=== PATIENT | female | born 1970 | race Two or more races ===

== ENCOUNTER 2023-01-25 09:47 | Outpatient (CLI) | payer OTHER | END 2023-01-25 09:50 | disposition home or self-care (01) | LOC: LAB 09:47 | PROVIDERS: ATTEND Specialist | DX: E78.5 Hyperlipidemia, unspecified (principal); I10 Essential (primary) hypertension; E03.9 Hypothyroidism, unspecified; E55.9 Vitamin D deficiency, unspecified; Z12.11 Encounter for screening for malignant neoplasm of colon; D64.9 Anemia, unspecified ==

== ENCOUNTER 2023-04-07 19:54 | Emergency (ER) | payer OTHER ==
[~2023-04-07] VITALS: Ht 152.4 cm; Wt 79.8 kg
[2023-04-07] MEDS ORDERED: LOSARTAN-HCTZ1 EAC1 PO (20:08)
[2023-04-07] MEDS ORDERED: SYNTHROID88 MCG PO (20:08)
[2023-04-07] MEDS ORDERED: MONTELUKAST SOD10 MG PO (20:08)
== END 2023-04-08 02:33 | disposition home or self-care (01) ==
LOC: ER 19:54
DX: S00.03XA Contusion of scalp, initial encounter (principal); S60.221A Contusion of right hand, initial encounter; M54.59 Other low back pain; M43.6 Torticollis; W18.39XA Other fall on same level, initial encounter; Y93.89 Activity, other specified; Y92.511 Restaurant or cafe as the place of occurrence of the external cause; Y99.8 Other external cause status

== ENCOUNTER → 2023-06-28 | Outpatient (CLI) | payer OTHER ==
[~2023-06-28] MED LIST: LOSARTAN-HCTZ1 EAC1 PO; MONTELUKAST SOD10 MG PO; SYNTHROID88 MCG PO
== END | disposition home or self-care (01) ==
LOC: LAB 10:04
PROVIDERS: ATTEND Internal Medicine Cardiovascular Disease
DX: I10 Essential (primary) hypertension (principal); E11.65 Type 2 diabetes mellitus with hyperglycemia; E78.2 Mixed hyperlipidemia; E55.9 Vitamin D deficiency, unspecified

== ENCOUNTER 2023-10-25 09:15 | Outpatient (CLI) | payer OTHER ==
[2023-10-25 10:47] LABS: HEMATOCRIT 38.5 % (36.0-45.00); HEMOGLOBIN 13.2 g/dL (12.0-15.00); MEAN CORPUSCULAR HEMOGLOBIN 31.8 pg (27.00-32.0); MEAN CORPUSCULAR HGB CONC 34.2 g/dl (32.0-36.0); PLATELET COUNT 276 K/uL (150-450); RED BLOOD COUNT 4.14 M/uL (4.00-6.00); RED CELL DISTRIBUTION WIDTH 12.6 % (11.5-14.5)
[2023-10-25 10:51] LABS: PH,URINE 7.5 (5.0-8.0); URINE APPEARANCE Clear; URINE BILIRRUBIN Negative (NEGATIVE); URINE BLOOD Negative; URINE COLOR Yellow; URINE GLUCOSE Negative (NEGATIVE); URINE LEUKOCYTE Trace; URINE NITRATE Negative; URINE PROTEIN Negative (NEGATIVE); URINE UROBILINOGEN 0.2 E.U./dl
[2023-10-25 10:54] LABS: URINE BACTERIA 62.9 uL (0.0-1933); URINE EPITHELIAL CELLS 7.4 uL (0.0-38.8); URINE RBC 3.5 uL (0.0-20.8)
[2023-10-25 11:02] LABS: MYCOPLASMA PNEUMONIAE IGM REACTIVE (NO REACTIVE)
[2023-10-25 11:08] LABS: ALBUMIN 4.1 gm/dL (3.4-5.0); BILIRUBIN TOTAL 0.47 mg/dL (0.3-1.2); CALCIUM 9.4 mg/dL (8.5-10.1); CHOL HDL RATIO 2.7 (0-5.0); CREATININE SERUM 0.72 mg/dL (0.55-1.02); FREE TRIODOTIRONINE 2.66 pg/ml (2.18-3.98); GFR 85.06; GLOBULINA 3.5 G/DL (2.4-3.5); POTASSIUM 3.8 mEq/L (3.5-5.1); T4 FREE 1.38 NG/ML (0.76-1.46); T4 TOTAL 10.85 UG/DL (4.8-13.9); TOTAL PROTEIN 7.6 gm/dL (6.4-8.2); TSH 1.76 uIU/mL (0.358-3.74)
[2023-10-27 15:22] LABS: RAPID PLASMA REAGIN NONREACTIVE BY RPR (NONREACTIVE)
== END 2023-10-25 09:17 | disposition home or self-care (01) ==
LOC: LAB 09:15
DX: B34.9 Viral infection, unspecified (principal); E11.69 Type 2 diabetes mellitus with other specified complication; N39.0 Urinary tract infection, site not specified; E55.9 Vitamin D deficiency, unspecified; I11.9 Hypertensive heart disease without heart failure

== ENCOUNTER → 2023-10-27 | Outpatient (CLI) | payer OTHER | END | disposition home or self-care (01) | LOC: MAMO-SONO 11:23 | DX: N95.1 Menopausal and female climacteric states (principal) ==

== ENCOUNTER 2023-12-01 07:53 | Outpatient (CLI) | payer OTHER | END 2023-12-01 08:01 | disposition home or self-care (01) | LOC: SONOGRAMA 07:53 | PROVIDERS: ATTEND General Practice | DX: E03.9 Hypothyroidism, unspecified (principal); E04.2 Nontoxic multinodular goiter ==

== ENCOUNTER 2023-12-26 10:50 | Outpatient (CLI) | payer OTHER ==
[2023-12-26 11:31] LABS: PH,URINE 7.5 (5.0-8.0); URINE APPEARANCE Clear; URINE BILIRRUBIN Negative (NEGATIVE); URINE BLOOD Negative; URINE COLOR Yellow; URINE GLUCOSE Negative (NEGATIVE); URINE LEUKOCYTE Moderate; URINE NITRATE Negative; URINE PROTEIN Negative (NEGATIVE); URINE UROBILINOGEN 0.2 E.U./dl
[2023-12-26 11:34] LABS: HEMATOCRIT 39.3 % (36.0-45.00); HEMOGLOBIN 13.6 g/dL (12.0-15.00); MEAN CELL VOLUME 94.3 fL (80.00-100.00); MEAN CORPUSCULAR HEMOGLOBIN 32.6 pg (27.00-32.0); MEAN CORPUSCULAR HGB CONC 34.5 g/dl (32.0-36.0); PLATELET COUNT 244 K/uL (150-450); RED BLOOD COUNT 4.17 M/uL (4.00-6.00); RED CELL DISTRIBUTION WIDTH 12.3 % (11.5-14.5)
[2023-12-26 11:35] LABS: URINE BACTERIA 977.6 uL (0.0-1933); URINE EPITHELIAL CELLS 15.1 uL (0.0-38.8); URINE RBC 45.2 uL (0.0-20.8); URINE WBC 10.5 uL (0.0-23.2)
[2023-12-26 12:32] LABS: ALBUMIN 4.2 gm/dL (3.4-5.0); BILIRUBIN TOTAL 0.59 mg/dL (0.3-1.2); CALCIUM 9.7 mg/dL (8.5-10.1); CREATININE SERUM 0.68 mg/dL (0.55-1.02); GFR 90.86; GLOBULINA 3.5 G/DL (2.4-3.5); POTASSIUM 3.74 mEq/L (3.5-5.1); T4 TOTAL 10.25 UG/DL (4.8-13.9); TOTAL PROTEIN 7.7 gm/dL (6.4-8.2); TSH 1.49 uIU/mL (0.358-3.74)
== END 2023-12-26 10:55 | disposition home or self-care (01) ==
LOC: LAB 10:50
PROVIDERS: ATTEND Internal Medicine Cardiovascular Disease
DX: I10 Essential (primary) hypertension (principal); E11.65 Type 2 diabetes mellitus with hyperglycemia; E03.8 Other specified hypothyroidism

== ENCOUNTER → 2023-12-26 11:28 | Outpatient (CLI) | payer OTHER | END | disposition home or self-care (01) | LOC: NUCLEAR 11:28 | PROVIDERS: ATTEND General Practice | DX: M81.0 Age-related osteoporosis without current pathological fracture (principal) ==

== ENCOUNTER → 2024-07-17 07:13 | Outpatient (CLI) | payer OTHER ==
[2024-07-17 09:15] LABS: ALBUMIN 3.8 gm/dL (3.4-5.0); BILIRUBIN TOTAL 0.49 mg/dL (0.3-1.2); CHOL HDL RATIO 2.6 (0-5.0); CREATININE SERUM 0.71 mg/dL (0.55-1.02); GFR 86.11; GLOBULINA 3.3 G/DL (2.4-3.5); PHOSPHOROUS 3.5 mg/dL (2.5-4.9); POTASSIUM 3.97 mEq/L (3.5-5.1); TOTAL PROTEIN 7.1 gm/dL (6.4-8.2)
[2024-07-17 09:58] LABS: HEMOGLOBIN 12.5 g/dL (12.0-15.00); MEAN CELL VOLUME 93.2 fL (80.00-100.00); MEAN CORPUSCULAR HEMOGLOBIN 32.3 pg (27.00-32.0); MEAN CORPUSCULAR HGB CONC 34.7 g/dl (32.0-36.0); PLATELET COUNT 215 K/uL (150-450); RED BLOOD COUNT 3.86 M/uL (4.00-6.00); RED CELL DISTRIBUTION WIDTH 12.7 % (11.5-14.5)
== END | disposition home or self-care (01) ==
LOC: LAB 07:13
PROVIDERS: ATTEND Internal Medicine Cardiovascular Disease
DX: I10 Essential (primary) hypertension (principal); E11.65 Type 2 diabetes mellitus with hyperglycemia

== ENCOUNTER 2024-09-18 07:19 | Outpatient (CLI) | payer OTHER ==
[2024-09-18 08:33] LABS: URINE APPEARANCE Clear; URINE BILIRRUBIN Negative (NEGATIVE); URINE BLOOD Negative; URINE COLOR Yellow; URINE GLUCOSE Negative (NEGATIVE); URINE KETONE Negative (NEGATIVE); URINE LEUKOCYTE Small; URINE NITRATE Negative; URINE PROTEIN Negative (NEGATIVE)
[2024-09-18 08:37] LABS: URINE BACTERIA 116.2 uL (0.0-1933); URINE EPITHELIAL CELLS 22.7 uL (0.0-38.8); URINE RBC 16.3 uL (0.0-20.8); URINE WBC 128.3 uL (0.0-23.2)
[2024-09-18 08:48] LABS: HEMATOCRIT 38.2 % (36.0-45.00); HEMOGLOBIN 13.3 g/dL (12.0-15.00); MEAN CELL VOLUME 93.2 fL (80.00-100.00); MEAN CORPUSCULAR HEMOGLOBIN 32.5 pg (27.00-32.0); MEAN CORPUSCULAR HGB CONC 34.8 g/dl (32.0-36.0); PLATELET COUNT 221 K/uL (150-450); RED BLOOD COUNT 4.09 M/uL (4.00-6.00); RED CELL DISTRIBUTION WIDTH 12.8 % (11.5-14.5)
[2024-09-18 09:03] LABS: ERYTHROCYTE SEDIMENTATION RATE 9 mm/hr
[2024-09-18 09:13] LABS: ALBUMIN 4.3 gm/dL (3.4-5.0); ALKALINE PHOSPHATASE 70 U/L (50-136); ALT/SGPT 38 U/L (12-78); ANION GAP 7 (10.0-20.0); AST/SGOT 26 U/L (15-37); BILIRUBIN TOTAL 0.43 mg/dL (0.3-1.2); BLOOD UREA NITROGEN 18 mg/dL (7-18); BUN CREA RATIO 21 (7.0-25.0); CALCIUM 9.3 mg/dL (8.5-10.1); CARBON DIOXIDE 31 mEq/L (21-32); CHLORIDE 107 mmol/L (98-107); CHOLESTEROL 143 mg/dL (0-200); CREATININE SERUM 0.84 mg/dL (0.55-1.02); GFR 70.92; GLOBULINA 2.7 G/DL (2.4-3.5); GLUCOSE FASTING 90 mg/dL (65-100); HDL 47 mg/dl (40-60); LDL 57 mg/dl (0-130); OSMOLALITY SERUM 283 MOSM/KG (275-295); SODIUM 141 mmol/L (136-145); T3 UPTAKE 36 % (30-39); T4 FREE 1.14 NG/ML (0.76-1.46); T4 TOTAL 7.53 UG/DL (4.8-13.9); TRIGLYCERIDES 194 mg/dL (0-150); VLDL 38 (0-39)
[2024-09-18 09:14] LABS: C-REACTIVE PROTEIN < 0.29 MG/DL (0.00-0.29)
[2024-09-18 09:57] LABS: URINE CAST 0.44 uL (0.0-1.40); URINE MUCUS HEAVY
[2024-09-18 14:42] LABS: RH POSITIVE
[2024-09-20 11:39] LABS: RF NEGATIVE (NEGATIVE)
== END 2024-09-18 23:00 | disposition home or self-care (01) ==
LOC: LAB 07:19
DX: E11.8 Type 2 diabetes mellitus with unspecified complications (principal); E78.9 Disorder of lipoprotein metabolism, unspecified; D64.9 Anemia, unspecified; E53.9 Vitamin B deficiency, unspecified

== ENCOUNTER 2024-09-18 08:06 | Outpatient (CLI) | payer OTHER | END 2024-09-18 08:13 | disposition home or self-care (01) | LOC: RAD 08:06 | DX: M54.12 Radiculopathy, cervical region (principal); M15.9 Polyosteoarthritis, unspecified ==

== ENCOUNTER → 2024-09-22 13:18 | Outpatient (CLI) | payer OTHER ==
[2024-09-22 13:46] LABS: ob NEGATIVE (NEGATIVE)
== END | disposition home or self-care (01) ==
LOC: LAB 13:18
DX: E11.9 Type 2 diabetes mellitus without complications (principal); E78.9 Disorder of lipoprotein metabolism, unspecified; J11.1 Influenza due to unidentified influenza virus with other respiratory manifestations; D64.9 Anemia, unspecified; E53.9 Vitamin B deficiency, unspecified

== ENCOUNTER → 2024-12-03 07:53 | Outpatient (CLI) | payer OTHER ==
[~2024-12-03 07:53] MED LIST changes: +CLARITIN10 MG PO; +CRESTOR40 MG PO; +LOSARTAN POTAS100 MG PO; +PROAIR RESPICL90 MCG IH; +SINGULAIR10 MG PO
[2024-12-03 09:05] LABS: HEMATOCRIT 39.2 % (36.0-45.00); HEMOGLOBIN 13.2 g/dL (12.0-15.00); MEAN CELL VOLUME 95.6 fL (80.00-100.00); MEAN CORPUSCULAR HEMOGLOBIN 32.3 pg (27.00-32.0); MEAN CORPUSCULAR HGB CONC 33.8 g/dl (32.0-36.0); PLATELET COUNT 247 K/uL (150-450); RED CELL DISTRIBUTION WIDTH 12.5 % (11.5-14.5)
[2024-12-03 09:06] LABS: URINE APPEARANCE Clear; URINE BILIRRUBIN Negative (NEGATIVE); URINE BLOOD Negative; URINE COLOR Yellow; URINE GLUCOSE Negative (NEGATIVE); URINE KETONE Negative (NEGATIVE); URINE LEUKOCYTE Small; URINE NITRATE Negative; URINE PROTEIN Negative (NEGATIVE); URINE UROBILINOGEN 0.2 E.U./dl
[2024-12-03 09:07] LABS: URINE BACTERIA 67.3 uL (0.0-1933); URINE EPITHELIAL CELLS 6.3 uL (0.0-38.8); URINE RBC 15.6 uL (0.0-20.8); URINE WBC 26.7 uL (0.0-23.2)
[2024-12-03 09:11] LABS: URINE CAST 0.14 uL (0.0-1.40)
[2024-12-03 10:07] LABS: ALBUMIN 3.9 gm/dL (3.4-5.0); BILIRUBIN TOTAL 0.37 mg/dL (0.3-1.2); CALCIUM 9.1 mg/dL (8.5-10.1); CREATININE SERUM 0.6 mg/dL (0.55-1.02); GFR 104.57; GLOBULINA 3.2 G/DL (2.4-3.5); POTASSIUM 4.06 mEq/L (3.5-5.1); T4 FREE 1.02 NG/ML (0.76-1.46); TOTAL PROTEIN 7.1 gm/dL (6.4-8.2); TSH 2.42 uIU/mL (0.358-3.74)
== END | disposition home or self-care (01) ==
LOC: LAB 07:53
PROVIDERS: ATTEND General Practice
DX: B34.9 Viral infection, unspecified (principal); M54.2 Cervicalgia; I11.9 Hypertensive heart disease without heart failure; E66.9 Obesity, unspecified; Z68.30 Body mass index [BMI] 30.0-30.9, adult; E11.69 Type 2 diabetes mellitus with other specified complication; N39.0 Urinary tract infection, site not specified; E55.9 Vitamin D deficiency, unspecified

== ENCOUNTER 2024-12-03 08:53 | Emergency (ER) | payer OTHER ==
[~2024-12-03] VITALS: Ht 160 cm; Wt 78.9 kg
[~2024-12-03 08:53] MED LIST changes: -CLARITIN10 MG PO; -CRESTOR40 MG PO; -LOSARTAN POTAS100 MG PO; -PROAIR RESPICL90 MCG IH; -SINGULAIR10 MG PO
[2024-12-03] MEDS ORDERED: CRESTOR40 MG PO (09:39)
[2024-12-03] MEDS ORDERED: CLARITIN10 MG PO (09:40)
[2024-12-03] MEDS ORDERED: LOSARTAN POTAS100 MG PO (09:40)
[2024-12-03] MEDS ORDERED: SINGULAIR10 MG PO (09:40)
[2024-12-03] MEDS ORDERED: PROAIR RESPICL90 MCG IH (09:41)
[2024-12-03 10:43] LABS: HEMATOCRIT 39.3 % (36.0-45.00); HEMOGLOBIN 13.5 g/dL (12.0-15.00); MEAN CORPUSCULAR HEMOGLOBIN 32.4 pg (27.00-32.0); MEAN CORPUSCULAR HGB CONC 34.5 g/dl (32.0-36.0); PLATELET COUNT 265 K/uL (150-450); RED BLOOD COUNT 4.18 M/uL (4.00-6.00); RED CELL DISTRIBUTION WIDTH 12.6 % (11.5-14.5)
[2024-12-03 11:01] LABS: BILIRUBIN TOTAL 0.54 mg/dL (0.3-1.2); CALCIUM 9.4 mg/dL (8.5-10.1); CREATININE SERUM 0.68 mg/dL (0.55-1.02); GFR 90.51; GLOBULINA 3.7 G/DL (2.4-3.5); POTASSIUM 3.4 mEq/L (3.5-5.1); TOTAL PROTEIN 7.7 gm/dL (6.4-8.2)
[2024-12-03 11:12] LABS: FIBRINOGEN 256 mg/dL (187.0-446.0)
[2024-12-03 11:46] LABS: D DIMER < 0.19 MG/L
== END 2024-12-03 13:49 | disposition home or self-care (01) ==
LOC: ER 08:56
PROVIDERS: General Practice
DX: M79.89 Other specified soft tissue disorders (principal); R53.81 Other malaise

== ENCOUNTER 2024-12-03 13:54 | Outpatient (CLI) | payer OTHER ==
[~2024-12-03 13:54] MED LIST changes: +CLARITIN10 MG PO; +CRESTOR40 MG PO; +LOSARTAN POTAS100 MG PO; +PROAIR RESPICL90 MCG IH; +SINGULAIR10 MG PO
== END 2024-12-03 14:00 | disposition home or self-care (01) ==
LOC: RAD 13:54
PROVIDERS: ATTEND General Practice
DX: B34.9 Viral infection, unspecified (principal); M54.2 Cervicalgia; M79.672 Pain in left foot; M54.40 Lumbago with sciatica, unspecified side

== ENCOUNTER 2024-12-18 09:04 | Outpatient (CLI) | payer OTHER ==
[2024-12-18 09:55] LABS: ob NEGATIVE (NEGATIVE)
== END 2024-12-18 09:05 | disposition home or self-care (01) ==
LOC: LAB 09:04
PROVIDERS: ATTEND General Practice
DX: B34.9 Viral infection, unspecified (principal); M54.2 Cervicalgia; I11.9 Hypertensive heart disease without heart failure; E66.9 Obesity, unspecified; Z68.30 Body mass index [BMI] 30.0-30.9, adult; E11.69 Type 2 diabetes mellitus with other specified complication

== ENCOUNTER 2024-12-28 13:48 | Outpatient (CLI) | payer OTHER | END 2024-12-28 13:57 | disposition home or self-care (01) | LOC: MAMO-SONO 13:48 | PROVIDERS: ATTEND General Practice | DX: N63.0 Unspecified lump in unspecified breast (principal); Z12.31 Encounter for screening mammogram for malignant neoplasm of breast ==

== ENCOUNTER 2025-02-05 08:18 | Outpatient (CLI) | payer OTHER ==
[2025-02-05 09:56] LABS: URINE APPEARANCE Clear; URINE BILIRRUBIN Negative (NEGATIVE); URINE BLOOD Negative; URINE COLOR Yellow; URINE GLUCOSE Negative (NEGATIVE); URINE KETONE Negative (NEGATIVE); URINE LEUKOCYTE Negative; URINE NITRATE Negative; URINE PROTEIN Negative (NEGATIVE)
[2025-02-05 10:00] LABS: URINE BACTERIA 26.9 uL (0.0-1933); URINE EPITHELIAL CELLS 2.3 uL (0.0-38.8); URINE RBC 30.9 uL (0.0-20.8); URINE WBC 5.2 uL (0.0-23.2)
[2025-02-05 10:06] LABS: HEMATOCRIT 39.2 % (36.0-45.00); HEMOGLOBIN 13.3 g/dL (12.0-15.00); MEAN CELL VOLUME 94.8 fL (80.00-100.00); MEAN CORPUSCULAR HEMOGLOBIN 32.2 pg (27.00-32.0); PLATELET COUNT 274 K/uL (150-450); RED BLOOD COUNT 4.14 M/uL (4.00-6.00); RED CELL DISTRIBUTION WIDTH 12.1 % (11.5-14.5)
[2025-02-05 10:09] LABS: URINE CAST 0.14 uL (0.0-1.40)
[2025-02-05 10:44] LABS: CHOL HDL RATIO 2.4 (0-5.0)
[2025-02-05 11:25] LABS: ALBUMIN 4.2 gm/dL (3.4-5.0); BILIRUBIN TOTAL 0.47 mg/dL (0.3-1.2); CALCIUM 9.6 mg/dL (8.5-10.1); CREATININE SERUM 0.72 mg/dL (0.55-1.02); GFR 84.73; GLOBULINA 3.3 G/DL (2.4-3.5); POTASSIUM 3.71 mEq/L (3.5-5.1); T4 TOTAL 8.64 UG/DL (4.8-13.9); TOTAL PROTEIN 7.5 gm/dL (6.4-8.2); TSH 2.89 uIU/mL (0.358-3.74)
== END 2025-02-05 08:29 | disposition home or self-care (01) ==
LOC: LAB 08:18
PROVIDERS: ATTEND Internal Medicine Cardiovascular Disease
DX: E11.65 Type 2 diabetes mellitus with hyperglycemia (principal); I10 Essential (primary) hypertension; E55.9 Vitamin D deficiency, unspecified

== ENCOUNTER 2025-02-19 09:03 | Outpatient (CLI) | payer OTHER ==
[2025-02-19 11:33] LABS: URINE APPEARANCE Clear; URINE BILIRRUBIN Negative (NEGATIVE); URINE BLOOD Negative; URINE COLOR Yellow; URINE GLUCOSE Negative (NEGATIVE); URINE KETONE Negative (NEGATIVE); URINE LEUKOCYTE Negative; URINE NITRATE Negative; URINE PROTEIN Negative (NEGATIVE)
[2025-02-19 11:37] LABS: URINE BACTERIA 57.5 uL (0.0-1933); URINE EPITHELIAL CELLS 4.1 uL (0.0-38.8); URINE WBC 7.9 uL (0.0-23.2)
== END 2025-02-19 09:07 | disposition home or self-care (01) ==
LOC: LAB 09:03
DX: I73.9 Peripheral vascular disease, unspecified (principal); M54.2 Cervicalgia; N39.0 Urinary tract infection, site not specified

== ENCOUNTER 2025-04-11 07:52 | Emergency (ER) | payer OTHER ==
[~2025-04-11] VITALS: Ht 160 cm; Wt 81.2 kg
[2025-04-11] MEDS ORDERED: KETOROLAC TROMETHAMINE 60 MG VIAL IM ONE (09:45)
[2025-04-11] MEDS ORDERED: ORPHENADRINE CITRATE 30 MG/ML AMPUL IM ONE (09:45)
[2025-04-11] MEDS ORDERED: NORFLEX100MG PO (11:14)
[2025-04-11] MEDS ORDERED: KETO10TA2 PO (11:14)
== END 2025-04-11 11:52 | disposition home or self-care (01) ==
LOC: ER 08:24
DX: M54.16 Radiculopathy, lumbar region (principal); I10 Essential (primary) hypertension

== ENCOUNTER 2025-07-16 08:01 | Outpatient (CLI) | payer OTHER ==
[~2025-07-16 08:01] MED LIST changes: +KETO10TA2 PO; +NORFLEX100MG PO
[2025-07-16 10:23] LABS: URINE APPEARANCE Clear; URINE BILIRRUBIN Negative (NEGATIVE); URINE COLOR Yellow; URINE GLUCOSE Negative (NEGATIVE); URINE KETONE Negative (NEGATIVE); URINE LEUKOCYTE Negative; URINE NITRATE Negative; URINE PROTEIN Negative (NEGATIVE); URINE UROBILINOGEN 0.2 E.U./dl
[2025-07-16 10:25] LABS: BASO % 0.7 % (0.1-1.2); EOS # 0.07 (0.04-0.54); EOS % 1.6 % (0.7-7.0); LYMPH # 1.53 (1.18-3.74); LYMPH % 34.2 % (19.3-53.1); MEAN PLATELET VOLUME 11.30 fl (9.4-12.4); MONO # 0.27 (0.24-0.82); MONO % 6.0 % (4.7-12.5); NEUT # 2.56 (1.56-6.13); NEUT % 57.3 % (34.0-71.1); RED CELL DISTRIBUTION WIDTH 11.6 % (11.6-14.4)
[2025-07-16 10:27] LABS: URINE BACTERIA 149.9 uL (0.0-1933); URINE EPITHELIAL CELLS 12.3 uL (0.0-38.8); URINE RBC 28.0 uL (0.0-20.8); URINE WBC 4.1 uL (0.0-23.2)
[2025-07-16 10:54] LABS: ALT/SGPT 44.0 U/L (12-78); AST/SGOT 26.0 U/L (15-37); BILIRUBIN TOTAL 0.49 mg/dL (0.3-1.2); BUN CREA RATIO 17.0 (7.0-25.0); CHOL HDL RATIO 4.2 (0-5.0); CREATININE SERUM 0.66 mg/dL (0.55-1.02); GFR 93.33; GLOBULINA 3.1 G/DL (2.4-3.5); HDL 58.0 mg/dl (40-60); LDL 138.0 mg/dl (0-130); T3 UPTAKE 33.0 % (30-39); T4 FREE 0.95 NG/ML (0.76-1.46); T4 TOTAL 7.56 UG/DL (4.8-13.9); TSH 4.11 uIU/mL (0.358-3.74); VLDL 46.0 (0-39)
[2025-07-16 10:55] LABS: GLUCOSE FASTING 104.0 mg/dL (65-100); OSMOLALITY SERUM 279.0 MOSM/KG (275-295)
[2025-07-16 11:05] LABS: URINE BLOOD TRACE; URINE CAST 0.14 uL (0.0-1.40)
== END 2025-07-16 08:02 | disposition home or self-care (01) ==
LOC: LAB 08:01
DX: E11.9 Type 2 diabetes mellitus without complications (principal); E78.2 Mixed hyperlipidemia; I11.9 Hypertensive heart disease without heart failure; I10 Essential (primary) hypertension